=== PATIENT | female | born 1930 | race Caucasian/White ===

== ENCOUNTER 2019-10-09 16:48 | Emergency (ER) | payer OTHER ==
[~2019-10-09] VITALS: Ht 170.2 cm; Wt 63.5 kg
--- NOTE | 2019-10-09 16:48 | NUR ---
PT PLACED IN BED 6. REPORT GIVEN TO АЛЕКСАНДР [place]
[2019-10-09 16:50] VITALS: BP_SYST 129
--- NOTE | 2019-10-09 16:50 | NUR ---
ER at bedside examining patient.
--- NOTE | 2019-10-09 16:55 | NUR ---
RN AT BEDSIDE . PT IS ALERT, CONFUSED. DAUGHTER GIVING REPORT TO MD AND RN. REPORT FROM DAUGHTER IS PT SEEMS ALTERED AND SLURRED SPEECH TODAY
--- NOTE | 2019-10-09 17:22 | NUR ---
AWAITING HEAD CT. CHEST XRAY DONE.
--- NOTE | 2019-10-09 17:29 | NUR ---
PT BACK FROM CT. PT IS STABLE. NO S/S OF ANY DISCOMFORT
[2019-10-09 17:33] LABS: BASOPHILS % (AUTO) 0.3 % (0.0-2.0); EOSINOPHILS # (AUTO) 0.1 K/uL (0.0-0.4); EOSINOPHILS % (AUTO) 0.8 % (0.0-4.0); HEMOGLOBIN 12.7 g/dL (12.0-16.0); LYMPHOCYTES # (AUTO) 1.5 K/uL (1.0-5.5); LYMPHOCYTES % (AUTO) 15.1 % (20.5-51.5); MEAN CORPUSCULAR HEMOGLOBIN 31 pg (27-31); MEAN CORPUSCULAR HGB CONC 34 % (32-36); MEAN CORPUSCULAR VOLUME 92 fL (79.0-98.0); MONOCYTES # (AUTO) 0.8 K/uL (0.0-1.0); MONOCYTES % (AUTO) 8.2 % (1.7-9.3); NEUTROPHILS # (AUTO) 7.7 K/uL (1.8-7.7); NEUTROPHILS % (AUTO) 75.6 % (40.0-70.0); PLATELET COUNT (AUTO) 246 K/uL (130-430); RED BLOOD CELL COUNT(AUTO) 4.11 MIL/uL (4.2-6.2); RED CELL DISTRIBUTION WIDTH 13.4 % (9.0-15.0); WHITE BLOOD COUNT (AUTO) 10.2 K/uL (4.8-10.8)
[2019-10-09 17:40] LABS: ANION GAP 7 (5-15); CALCIUM 8.5 mg/dL (8.4-11.0); CHLORIDE 98 mmol/L (98-107); CREATININE 0.96 mg/dL (0.55-1.30); GLUCOSE 105 mg/dL (70-99); POTASSIUM 3.9 mmol/L (3.5-5.1); SODIUM SERUM 131 mmol/L (136-145); UREA NITROGEN, BLOOD 25 mg/dL (8-21)
[2019-10-09 17:45] LABS: ALANINE AMINOTRANSFERASE 16 U/L (12-78); ALBUMIN 3.2 g/dL (3.4-4.8); ASPARTATE AMINOTRANSFERASE 21 U/L (10-37); TOTAL BILIRUBIN 1.1 mg/dL (0.0-1.0)
[2019-10-09] MEDS ORDERED: ASPIRIN 325 MG TABLET PO ONE (17:45)
--- NOTE | 2019-10-09 17:45 | NUR ---
Patient given written and verbal discharge instructions and verbalizes understanding. ER MD discussed with patient the results and treatment provided. Patient in stable condition. ID arm band removed. Rx of NA given. Patient educated on pain management and to follow up with PMD. Pain Scale 0/10.PT TRANSFERRED TO [facility] VIA AMBULANCE/PARAMEDICS Opportunity for questions provided and answered. Medication side effect fact sheet provided.
[2019-10-09 18:09] LABS: BILIRUBIN,URINE NEGATIVE (NEGATIVE); BLOOD, URINE NEGATIVE (NEGATIVE); COLOR,URINE YELLOW (YELLOW); GLUCOSE,URINE NEGATIVE (NEGATIVE); KETONES,URINE NEGATIVE (NEGATIVE); LEUKOCYTE ESTERASE ,URINE 2+ (NEGATIVE); NITRITE, URINE NEGATIVE (NEGATIVE); PH,URINE 6.5 (5.0-8.0); PROTEIN URINE NEGATIVE (NEGATIVE); UROBILINOGEN,URINE 0.2 (0.2-1.0)
[2019-10-09 18:11] LABS: CLARITY/URINE HAZY (CLEAR)
[2019-10-09 18:34] LABS: BACTERIA,URINE FEW /HPF (None Seen); RBC,URINE 0-3 /HPF (0-3)
[2019-10-23 09:11] VITALS: BP_SYST 129
== END 2019-10-09 19:00 | disposition short-term general hospital (02) ==
LOC: SED 16:48
DX: I62.9 Nontraumatic intracranial hemorrhage, unspecified (principal); I10 Essential (primary) hypertension; F03.90 Unspecified dementia, unspecified severity, without behavioral disturbance, psychotic disturbance, mood disturbance, and anxiety
CPT/HCPCS: 36415; 70450-TC; 71045; 80053; 81000-TC; 84484; 85025; 85610-TC; 85730-TC; 87086; 93005; 99285